=== PATIENT | female | born 1960 | race Caucasian/White ===

== ENCOUNTER 2020-01-02 09:33 | Outpatient (REF) | payer OTHER, SELFPAY ==
[2020-01-02 11:18] LABS: MANUAL DIFF FLAG NO
[2020-01-02 11:21] LABS: Basophils Percent Auto 0.4 % (0-2); Eosinophils Absolute Auto 0.1 X10*3/uL (0.0-0.4); Eosinophils Percent Auto 2.4 % (0-4); Hematocrit 41.8 % (37-47); Hemoglobin 14.1 g/dl (12.0-16.0); Imm Gran Abs Auto 0.01 X10*3/uL (0.00-0.03); Imm Gran Pct Auto 0.2 % (0.0-0.4); Lymphocytes Percent Auto 36.8 % (20-40); Mean Corpuscular HGB Conc 33.7 g/dl (31.0-35.0); Mean Corpuscular Hemoglobin 31.5 pg (27.0-33.0); Mean Corpuscular Volume 93.5 fL (80-98); Mean Platelet Volume 10.4 fL (9.4-12.3); Monocytes Absolute Auto 0.3 X10*3/uL (0.1-1.2); Monocytes Percent Auto 6.2 % (2-11); Platelet Count 205 X10*3/uL (160-400); Red Blood Count 4.47 X10*6/uL (4.20-5.50); Red Cell Distribution Width 13.1 % (11.0-16.0); White Blood Count 5.5 X10*3/uL (4.8-10.8)
[2020-01-02 11:59] LABS: Alanine Aminotransferase 28 U/L (0-31); Albumin Level 4.4 g/dL (3.5-5.0); Alkaline Phosphatase 60 U/L (39-117); Anion Gap 12 (12-20); Aspartate Amino Transferase 26 U/L (5-31); Bilirubin Total 0.6 mg/dL (0.0-1.0); Blood Urea Nitrogen 15 mg/dL (9-16); Calcium 8.8 mg/dL (8.4-10.2); Carbon Dioxide 28 mmol/L (22-29); Chloride 105 mmol/L (96-108); Cholesterol 240 mg/dL; Estimated Glomerular Filt Rate > 60; Glucose Fasting 97 mg/dL (60-99); HDL Cholesterol 75 mg/dL; LDL Cholesterol Calculated 144 mg/dl; Potassium 4.4 mmol/l (3.3-5.1); Sodium 141 mmol/L (135-145); Total Protein 6.9 g/dL (6.5-8.0); Triglycerides 106 mg/dL
== END 2020-01-02 09:34 | disposition home or self-care (01) ==
LOC: HO.MANLDS 09:33
PROVIDERS: PCP Physician Assistant; Visit Provider Physician Assistant
DX: Z00.00 Encounter for general adult medical examination without abnormal findings (principal); Z13.6 Encounter for screening for cardiovascular disorders
CPT/HCPCS: 36415; 80053; 80061; 85025

== ENCOUNTER 2021-01-03 09:20 | Outpatient (REF) | payer BC, SELFPAY ==
[2021-01-03 10:55] LABS: MANUAL DIFF FLAG NO
[2021-01-03 11:10] LABS: Basophils Percent Auto 0.5 % (0-2); Eosinophils Absolute Auto 0.2 X10*3/uL (0.0-0.4); Eosinophils Percent Auto 2.8 % (0-4); Hematocrit 41.1 % (37.0-47.0); Hemoglobin 13.8 g/dl (12.0-16.0); Imm Gran Abs Auto 0.02 X10*3/uL (0.00-0.03); Imm Gran Pct Auto 0.4 % (0.0-0.4); Lymphocytes Percent Auto 35.6 % (20-40); Mean Corpuscular HGB Conc 33.6 g/dl (31.0-35.0); Mean Corpuscular Hemoglobin 31.2 pg (27.0-33.0); Mean Corpuscular Volume 92.8 fL (80.0-98.0); Monocytes Absolute Auto 0.4 X10*3/uL (0.1-1.2); Monocytes Percent Auto 6.5 % (2-11); Neutrophils Absolute Auto 3.1 x10*3/uL (2.0-8.3); Neutrophils Percent Auto 54.2 % (45-73); Platelet Count 192 X10*3/uL (160-400); Red Blood Count 4.43 X10*6/uL (4.20-5.50); Red Cell Distribution Width 12.8 % (11.0-16.0); White Blood Count 5.7 X10*3/uL (4.8-10.8)
[2021-01-03 11:30] LABS: Alanine Aminotransferase 21 U/L (0-31); Albumin Level 4.4 g/dL (3.5-5.0); Alkaline Phosphatase 65 U/L (39-117); Anion Gap 11 (12-20); Aspartate Amino Transferase 23 U/L (5-31); Bilirubin Total 0.6 mg/dL (0.0-1.0); Blood Urea Nitrogen 14 mg/dL (9-16); Calcium 9.3 mg/dL (8.4-10.2); Carbon Dioxide 27 mmol/L (22-29); Chloride 107 mmol/L (96-108); Cholesterol 220 mg/dL; Estimated Glomerular Filt Rate > 60; Glucose Random 95 mg/dL (60-115); HDL Cholesterol 68 mg/dL; LDL Cholesterol Calculated 131 mg/dl; Potassium 4.1 mmol/L (3.3-5.1); Sodium 141 mmol/L (135-145); Total Protein 6.8 g/dL (6.5-8.0); Triglycerides 105 mg/dL
[2021-01-03 11:51] LABS: Free T4 (Free Thyroxine) 0.87 ng/dL (0.71-1.85); Thyroid Stimulating Hormone 2.32 uIU/mL (0.32-4.0)
== END 2021-01-03 09:21 | disposition home or self-care (01) ==
LOC: HO.MANLDS 09:20
PROVIDERS: PCP Physician Assistant; Visit Provider Physician Assistant
DX: Z00.00 Encounter for general adult medical examination without abnormal findings (principal)
CPT/HCPCS: 36415; 80053; 80061; 84439; 84443; 85025

== ENCOUNTER 2022-02-07 07:59 | Outpatient (REF) | payer BC, SELFPAY ==
[2022-02-07 11:05] LABS: MANUAL DIFF FLAG NO
[2022-02-07 11:24] LABS: Basophils Percent Auto 0.7 % (0-2); Eosinophils Absolute Auto 0.1 X10*3/uL (0.0-0.4); Hematocrit 38.5 % (37.0-47.0); Lymphocytes Absolute Auto 1.7 X10*3/uL (1.2-4.9); Lymphocytes Percent Auto 37.8 % (20-40); Mean Corpuscular HGB Conc 33.8 g/dl (31.0-35.0); Mean Corpuscular Hemoglobin 31.6 pg (27.0-33.0); Mean Corpuscular Volume 93.7 fL (80.0-98.0); Mean Platelet Volume 10.6 fL (9.4-12.3); Monocytes Absolute Auto 0.3 X10*3/uL (0.1-1.2); Monocytes Percent Auto 7.1 % (2-11); Neutrophils Absolute Auto 2.3 x10*3/uL (2.0-8.3); Neutrophils Percent Auto 51.4 % (45-73); Platelet Count 205 X10*3/uL (160-400); Red Blood Count 4.11 X10*6/uL (4.20-5.50); Red Cell Distribution Width 13.2 % (11.0-16.0); White Blood Count 4.4 X10*3/uL (4.8-10.8)
[2022-02-07 13:24] LABS: Alanine Aminotransferase 21 U/L (0-31); Albumin Level 4.2 g/dL (3.5-5.0); Alkaline Phosphatase 58 U/L (39-117); Anion Gap 12 (12-20); Aspartate Amino Transferase 21 U/L (5-31); Bilirubin Total 0.7 mg/dL (0.0-1.0); Blood Urea Nitrogen 15 mg/dL (9-16); Carbon Dioxide 26 mmol/L (22-29); Chloride 108 mmol/L (96-108); Cholesterol 225 mg/dL; Estimated Glomerular Filt Rate > 60; Free T4 (Free Thyroxine) 1.06 ng/dL (0.71-1.85); Glucose Random 87 mg/dL (60-115); HDL Cholesterol 73 mg/dL; LDL Cholesterol Calculated 133 mg/dl; Potassium 4.3 mmol/L (3.3-5.1); Sodium 142 mmol/L (135-145); Total Protein 6.2 g/dL (6.5-8.0); Triglycerides 96 mg/dL
== END 2022-02-07 08:00 | disposition home or self-care (01) ==
LOC: HO.MANLDS 07:59
PROVIDERS: Visit Provider Physician Assistant
DX: Z00.00 Encounter for general adult medical examination without abnormal findings (principal)
CPT/HCPCS: 36415; 80053; 80061; 84439; 84443; 85025

== ENCOUNTER 2023-02-09 09:44 | Outpatient (REF) | payer BC, SELFPAY ==
[2023-02-09 13:26] LABS: MANUAL DIFF FLAG NO
[2023-02-09 13:36] LABS: Basophils Percent Auto 0.3 % (0-2); Eosinophils Absolute Auto 0.1 X10*3/uL (0.0-0.4); Eosinophils Percent Auto 2.1 % (0-4); Hematocrit 40.8 % (37.0-47.0); Hemoglobin 13.6 g/dl (12.0-16.0); Imm Gran Abs Auto 0.01 X10*3/uL (0.00-0.03); Imm Gran Pct Auto 0.2 % (0.0-0.4); Lymphocytes Percent Auto 35.5 % (20-40); Mean Corpuscular HGB Conc 33.3 g/dl (31.0-35.0); Mean Corpuscular Hemoglobin 31.1 pg (27.0-33.0); Mean Corpuscular Volume 93.2 fL (80.0-98.0); Mean Platelet Volume 10.8 fL (9.4-12.3); Monocytes Absolute Auto 0.4 X10*3/uL (0.1-1.2); Monocytes Percent Auto 6.6 % (2-11); Neutrophils Absolute Auto 3.2 x10*3/uL (2.0-8.3); Neutrophils Percent Auto 55.3 % (45-73); Platelet Count 223 X10*3/uL (160-400); Red Blood Count 4.38 X10*6/uL (4.20-5.50); Red Cell Distribution Width 13.1 % (11.0-16.0); White Blood Count 5.7 X10*3/uL (4.8-10.8)
[2023-02-09 14:14] LABS: Alanine Aminotransferase 17 U/L (0-31); Albumin Level 4.3 g/dL (3.5-5.0); Alkaline Phosphatase 68 U/L (39-117); Anion Gap 14 (12-20); Aspartate Amino Transferase 24 U/L (5-31); Bilirubin Total 0.6 mg/dL (0.0-1.0); Blood Urea Nitrogen 15 mg/dL (9-16); Calcium 9.4 mg/dL (8.4-10.2); Carbon Dioxide 26 mmol/L (22-29); Chloride 105 mmol/L (96-108); Cholesterol 215 mg/dL (<200); Estimated Glomerular Filt Rate > 60; Glucose Random 90 mg/dL (60-115); HDL Cholesterol 74 mg/dL (>40); LDL Cholesterol Calculated 126 mg/dL (<100); Potassium 3.9 mmol/L (3.3-5.1); Sodium 141 mmol/L (135-145); Total Protein 7.1 g/dL (6.5-8.0); Triglycerides 79 mg/dL (<150)
[2023-02-09 14:29] LABS: Thyroid Stimulating Hormone 1.74 uIU/mL (0.32-4.0)
[2023-02-09 14:35] LABS: Free T4 (Free Thyroxine) 1.01 ng/dL (0.71-1.85)
== END 2023-02-09 09:45 | disposition home or self-care (01) ==
LOC: HO.MANLDS 09:44
PROVIDERS: Visit Provider Physician Assistant
DX: Z00.00 Encounter for general adult medical examination without abnormal findings (principal)
CPT/HCPCS: 36415; 80053; 80061; 84439; 84443; 85025

== ENCOUNTER 2023-07-03 07:46 | Outpatient (REF) | payer BC, SELFPAY ==
[2023-07-03 14:05] LABS: Anion Gap 11 (12-20); Blood Urea Nitrogen 16 mg/dL (9-16); Calcium 9.6 mg/dL (8.4-10.2); Carbon Dioxide 27 mmol/L (22-29); Chloride 107 mmol/L (96-108); Cholesterol 211 mg/dL (<200); Estimated Glomerular Filt Rate > 60; Glucose Random 88 mg/dL (60-115); HDL Cholesterol 67 mg/dL (>40); LDL Cholesterol Calculated 123 mg/dL (<100); Potassium 4.2 mmol/L (3.3-5.1); Sodium 141 mmol/L (135-145); Triglycerides 106 mg/dL (<150)
== END 2023-07-03 07:47 | disposition home or self-care (01) ==
LOC: HO.MANLDS 07:46
PROVIDERS: Visit Provider Internal Medicine
DX: I10 Essential (primary) hypertension (principal)
CPT/HCPCS: 36415; 80048; 80061

== ENCOUNTER 2025-02-25 09:50 | Outpatient (REF) | payer BC, SELFPAY ==
--- OUTSIDE RECORDS SUMMARY | 2025-02-25 10:44 | XMS_ITS | Encounter Summary ---
Author Organization [facility] Address [address] [facility] [address] [place] [address] Phone Care Team Providers Care Credit Card Clerk Name Role Phone Nereyda Tayo Brown DO Unavailable Daysi Stringer MUSIC DIRECTOR Unavailable [phone] Sun [place] MUSIC DIRECTOR Unavailable [phone] Cynthia Paulino MD Unavailable Dianne Harry MUSIC DIRECTOR Unavailable [phone] Tayo Dawn DO Primary Care Provider [phone] Tayo Dawn DO Unavailable Encounter Details Date Type Department Care Team (Latest Contact Info) Description 10/15/2018 Transcribe Orders Virtual Department [address] [place] [address] Kim Griffin PA-C [address] [place] [address] [email or web address] Abnormal findings on diagnostic imaging of other specified body structures (Primary Dx) Social History Tobacco Use Types Packs/Day Years Used Date Smoking Tobacco: Former Alcohol Use Standard Drinks/Week Comments Yes 0 (1 standard drink = 0.6 oz pur e alcohol) Comments No Sex and Gender Information Value Date Recorded Sex Assigned at Female 10/05/2018 5:50 AM EDT Legal Sex Female 9:50 PM EDT Gender Identity Female 10/05/2018 5:50 AM EDT Sexual Orientation Not on file documented as of this encounter Plan of Treatment Upcoming Encounters Date Type Department Care Team (Late st Contact Info) Description 11/24/2024 Procedure Pass [address] [address] 07/29/2025 7:30 AM EDT Appointment [facility] [address] [place] [address] Tayo Dawn, DO [address] [facility] [place] [address] [place] [address] documented as of this encounter Results * XR CHEST PA AND LATERAL 2 VIEWS (10/22/2018 3:00 PM EDT) Anatomical Region Laterality Modality Chest Radiographic Ainsley ging 10/22/2018 3:12 PM EDT Impressions 10/22/2018 3:14 PM EDT Persisting unchanged pleural-based density in the right midlung field as detailed above. Please see above for follow-up suggestions. S/S: <N/A> no indication applies (use free text below) STANDARD CHEST XR ABNORMAL Abnormal findings on diagnostic imaging of other specified body structures follow-up density right midlung field on the previous chest x-ray POS - [id number] Narrative 10/22/2018 3:14 PM EDT COMPARISON: Chest x-ray 10/05/2018 FINDINGS: PA and lateral imaging of the chest is obtained. The heart size is normal. The focal linear density evident along the minor fissure in the right midlung field persists and unchanged pattern. This is of undetermined etiology but could represent some pleural plaquing. As indicated previously CT scanning could be considered although the likelihood of this being a significant process is low. The lungs otherwise are unremarkable. The aortic contour is unchanged. There are moderate degenerative changes in the thoracic spine. No pneumothorax or pleural fluid is seen. Procedure Note Brock Landry MD - 10/22/2018 COMPARISON: Chest x-ray 10/05/2018 FINDINGS: PA and lateral imaging of the chest is obtained. The heart size is normal. The focal linear density evident along the minor fissure in the rightmidlung field persists and unchanged pattern. This is of undeterminedetiology but could represent some pleural plaquing. As indicatedpreviously CT scanning could be considered although the likelihood of thisbeing a significant process is low. The lungs otherwise areunremarkable. The aortic contour is unchanged. There are moderate degenerative changes in the thoracic spine. No pneumothorax or pleural fluid is seen. IMPRESSION: Persisting unchanged pleural-based density in the right midlung field asdetailed above. Please see above for follow-up suggestions. S/S: <N/A> no indication applies (use free text below) STANDARD CHEST XR ABNORMAL Abnormal findings on diagnostic imaging of other specified body structuresfollow-up density right midlung field on the previous chest x-ray POS - [id number] May Elias WALLER IMG XR CHEST Final Result documented in this encounter Visit Diagnoses Diagnosis Abnormal findings on diagnostic imaging of other specified body structures- Primary Abnormal findings on diagnostic imaging of other specified body structures Visit for screening mammogram documented in this encounter Care Teams Credit Card Clerk Relationship Specialty Start Date End Date Tayo Dawn DO [address] [place] [address] PCP - General 03/01/17 Tayo Dawn DO Historical LMR Provider 12/12/16 Daysi Stringer NP [address] [place] [address] [email or web address] Historical LMR Provider 12/12/16 2 Sun [place] NP [address] [place] [address] Historical LMR Provider 12/12/16 2 Cynthia Paulino MD [address] [place] [address] [email or web address] Historical LMR Provider 12/12/16 03/05/21 Dianne Harry NP [address] [place] [address] Historical LMR Provider 12/12/16 2 Tayo Dawn DO [address] [place] [address] [place] [address] [email or web address] Insurance Assigned Provider 06/02/23 documented as of this encounter Additional Source Comments The information contained in this document represents components of the legal health record. It is not the complete legal health record.[facility]
--- OUTSIDE RECORDS SUMMARY | 2025-02-25 10:44 | XMS_ITS | Encounter Summary ---
Author Organization [facility] Address [address] [address] Phone Care Team Providers Care Sheep Killer Name Role Phone Tayo Dawn DO Unavailable Daysi Stringer PRICING/SIGNAGE TEAM MEMBER Unavailable Sun [place] PRICING/SIGNAGE TEAM MEMBER Unavailable Cynthia Paulino MD Unavailable Dianne Harry PRICING/SIGNAGE TEAM MEMBER Unavailable [phone] Tayo Dawn DO Primary Care Provider [phone] Tayo Dawn DO Unavailable Encounter Details Date Type Department Care Team (Late st Contact Info) Description 08/30/2018 Ancillary Orders Virtual Department [address] [place] [address] Tayo Dawn DO [address] [facility] [place] [address] [email or web address] Breast screening Social History Tobacco Use Types Packs/Day Years Used Date Smoking Tobacco: Never Assessed Comments No Sex and Gender Information Value Date Recorded Sex Assigned at Female 10/05/2018 5:50 AM EDT Legal Sex Female 9:50 PM EDT Gender Identity Female 10/05/2018 5:50 AM EDT Sexual Orientation Not on file documented as of this encounter Plan of Treatment Upcoming Encounters Date Type Department Care Team (Late st Contact Info) Description 11/24/2024 Procedure Pass [address] [address] 07/29/2025 7:30 AM EDT Appointment [address] [address] MeirTayo moreno Kevin, [address] [facility] [place] [address] [email or web address] documented as of this encounter Results * BI MAMMOGRAM SCREENING WITH TOMOSYNTHESIS WITH CAD (BILATERAL) (11/13/2018 7:20 AM EDT) Anatomical Region Laterality Modality Breast Left, Breast Right, Breast Bilateral Bila teral Mammography 11/13/2018 7:52 AM EDT Impressions 11/13/2018 7:57 AM EDT No mammographic evidence of malignancy. Recommend routine annual surveillance. BI-RADS CATEGORY: 2 - Benign finding. DENSITY: There are scattered fibroglandular densities. POS - [id number] Narrative 11/13/2018 7:57 AM EDT 58-year-old female with no current breast symptoms. Comparison made to previous on 11/02/2017 and as far back as 06/07/2012. Interpretation made in conjunction with computer-aided detection and tomosynthesis. There are scattered areas of fibroglandular density. Stable scattered benign bilateral macrocalcifications. There are no suspicious masses, areas of architectural distortion, or suspicious clusters of microcalcifications. Procedure Note Ileana Roy MD - 11/13/2018 58-year-old female with no current breast symptoms. Comparison made toprevious on 11/02/2017 and as far back as 06/07/2012. Interpretation madein conjunction with computer-aided detection and tomosynthesis. There are scattered areas of fibroglandular density. Stable scatteredbenign bilateral macrocalcifications. There are no suspicious masses, areas of architectural distortion, orsuspicious clusters of microcalcifications. IMPRESSION: No mammographic evidence of malignancy. Recommend routine annualsurveillance. BI-RADS CATEGORY: 2 - Benign finding. DENSITY: There are scattered fibroglandular densities. POS - [id number] Tayo Dawn DO IMG MG EXAMS Final Result documented in this encounter Visit Diagnoses Diagnosis Breast screening Breast screening, unspecified Breast screening Breast screening, unspecified Visit for screening mammogram documented in this encounter Care Teams Sheep Killer Relationship Specialty Start Date End Date Nereyda Tayo DO Kevin [address] [place] [address] PCP - General 03/01/17 Tayo Dawn DO Historical LMR Provider 12/12/16 Daysi Stringer PRICING/SIGNAGE TEAM MEMBER [address] [place] [address] [email or web address] Historical LMR Provider 12/12/16 2 Sun [place] NP [address] [place] [address] Historical LMR Provider 12/12/16 2 Cynthia Paulino MD [address] [address] Historical LMR Provider 12/12/16 03/05/21 Dianne Harry NP [address] [place] [address] Historical LMR Provider 12/12/16 2 Tayo Dawn DO [address] [place] [address] [email or web address] Insurance Assigned Provider 06/02/23 documented as of this encounter Additional Source Comments The information contained in this document represents components of the legal health record. It is not the complete legal health record.[facility]
--- OUTSIDE RECORDS SUMMARY | 2025-02-25 10:44 | XMS_ITS | Encounter Summary ---
Author Organization [facility] Address [address] [facility] [address] [place] [address] Phone Care Team Providers Care Photographic Spotter Name Role Phone Tayo Dawn DO Unavailable Daysi Stringer GENERAL SURGEON Unavailable [phone] Sun [place] GENERAL SURGEON Unavailable [phone] Cynthia Paulino MD Unavailable Dianne Harry GENERAL SURGEON Unavailable [phone] Tayo Dawn DO Primary Care Provider [phone] Tayo Dawn DO Unavailable Encounter Details Date Type Department Care Team (Late st Contact Info) Description 09/17/2020 Procedure Pass [address] [address] Social History Tobacco Use Types Packs/Day Years Used Date Smoking Tobacco: Former Smokeless Tobacco: Never Alcohol Use Standard Drinks/Week Comments Yes 3 (1 standard drink = 0.6 oz pur e alcohol) MONTHLY Comments No Sex and Gender Information Value Date Recorded Sex Assigned at Female 10/05/2018 5:50 AM EDT Legal Sex Female 9:50 PM EDT Gender Identity Female 10/05/2018 5:50 AM EDT Sexual Orientation Not on file 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 Not on file N ot on file documented as of this encounter Plan of Treatment Upcoming Encounters Date Type Department Care Team (Late st Contact Info) Description 11/24/2024 Procedure Pass [address] [address] 07/29/2025 7:30 AM EDT Appointment [address] [address] Tayo Dawn DO [address] [facility] [place] [address] documented as of this encounter Visit Diagnoses Not on filedocumented in this encounter Care Teams Photographic Spotter Relationship Specialty Start Date End Date Tayo Dawn DO [address] [place] [address] PCP - General 03/01/17 Tayo Dawn DO Historical LMR Provider 12/12/16 Daysi Stringer GENERAL SURGEON [address] [place] [address] [email or web address] Historical LMR Provider 12/12/16 2 Sun Boston NP [address] [place] [address] Historical LMR Provider 12/12/16 2 Cynthia Paulino MD [address] [place] [address] Historical LMR Provider 12/12/16 03/05/21 Dianne Harry NP [address] [place] [address] Historical LMR Provider 12/12/16 2 Tayo Dawn DO [address] [place] [address] [email or web address] Insurance Assigned Provider 06/02/23 documented as of this encounter Additional Source Comments The information contained in this document represents components of the legal health record. It is not the complete legal health record.[facility]
--- OUTSIDE RECORDS SUMMARY | 2025-02-25 10:44 | XMS_ITS | Data Portability ---
Author Organization [facility], Telehealth Patient Home Address [address] [place] [address] Assessment Encounter Date Assessment Date Assessment LastModified by Organization Details LastModified Time 06/15/2023 06/15/2023 [id number] [place] [id number] (MEDICAL SCIENCE LIAISON) [facility] MUST MEET 2 OUT OF 3 ELEMENTS: PROBLEMS, DATA OR RISK ELEMENT 1: PROBLEMS ADDRESSED 1 OR MORE CHRONIC ILLNESS WITH EXACERBATION OR 2 OR MORE STABLE CHRONIC ILLNESSES OR 1 UNDIAGNOSED NEW PROBLEM OR 1 ACUTE ILLNESS W/SYMPTOMS OR 1 ACUTE COMPLICATED INJURY ELEMENT 2: DATA MUST MEET 1 OF 3 CATEGORIES CATEGORY 1: REVIEW OF PRIOR EXTERNAL NOTES, REVIEW OF RESULTS, ORDERING OF EACH TEST, ASSESSMENT REQUIRING INDEPENDENT HISTORIAN OR CATEGORY 2: INDEPENDENT INTERPRETATION OF TESTS BY ANOTHER PHYSICIAN OR SPECIALIST OR CATEGORY 3: DISCUSSION OF MGT OR TEST INTERPRETATION W/EXTERNAL PHYSICIAN OR SPECIALIST ELEMENT 3: RISK RISK OF COMPLICATIONS AND/OR MORBIDITY OR MORTALITY OF PATIENT MANAGEMENT PROVIDER MUST THOROUGHLY DOCUMENT EACH ELEMENT THAT IS COVERED Not available 06/15/2023 16:24:15 09/11/2023 09/11/2023 [id number] [place] [id number] (MEDICAL SCIENCE LIAISON) [facility] MUST MEET 2 OUT OF 3 ELEMENTS: PROBLEMS, DATA OR RISK ELEMENT 1: PROBLEMS ADDRESSED 1 OR MORE CHRONIC ILLNESS WITH EXACERBATION OR 2 OR MORE STABLE CHRONIC ILLNESSES OR 1 UNDIAGNOSED NEW PROBLEM OR 1 ACUTE ILLNESS W/SYMPTOMS OR 1 ACUTE COMPLICATED INJURY ELEMENT 2: DATA MUST MEET 1 OF 3 CATEGORIES CATEGORY 1: REVIEW OF PRIOR EXTERNAL NOTES, REVIEW OF RESULTS, ORDERING OF EACH TEST, ASSESSMENT REQUIRING INDEPENDENT HISTORIAN OR CATEGORY 2: INDEPENDENT INTERPRETATION OF TESTS BY ANOTHER PHYSICIAN OR SPECIALIST OR CATEGORY 3: DISCUSSION OF MGT OR TEST INTERPRETATION W/EXTERNAL PHYSICIAN OR SPECIALIST ELEMENT 3: RISK RISK OF COMPLICATIONS AND/OR MORBIDITY OR MORTALITY OF PATIENT MANAGEMENT PROVIDER MUST THOROUGHLY DOCUMENT EACH ELEMENT THAT IS COVERED Not available 09/11/2023 15:16:41 Plan of Treatment Reminders Order Date Submit Date Provider Last Modified By Organization Details Last Modified Time Details Appointments ANNUAL EXAM 2024 09:00A M ANTONIO AMADOR Not available Not available Not available MEDICARE ANNUAL WELLNESS 2026 09:00A M ANTONIO AMADOR Not available Not available Not available Lab CMP, serum or plasma 2024 025 [facility], [address] [place] [address], [id number], 02/25/2025 09:45:23 CBC w/ auto diff 2024 025 [facility], [address] [place] [address], [id number], 02/25/2025 09:45:23 lipid panel, blood 2024 025 [facility], [address] [place] [address], [id number], 02/25/2025 09:45:23 hemoglobi n A1c, QN, blood 2024 025 [facility], [address] [place] [address], [id number], 02/25/2025 09:45:23 TSH + free T4, serum 2023 024 [facility], [place], [address], 02/18/2024 09:18:19 BMP, blood 2023 024 [facility], [address] [place] [address], [address], 06/22/2023 08:14:08 lipid panel, blood 2023 024 [facility], [address] [place] [address], [id number], 06/22/2023 08:14:08 CMP, serum or plasma 2022 023 [facility], [address] [place] [address], [place], [address], 02/12/2023 11:45:13 CBC w/ auto diff 2022 023 [facility], [address] [place] [address], [place], [address], 02/12/2023 11:45:13 lipid panel, blood 2022 023 [facility], [address] [place] [address], [address], 02/12/2023 11:45:13 TSH + free T4, serum 2022 023 [facility], [address] [place] [address], [place], [address], 02/12/2023 11:45:13 Referral physical therapist referral 2024 025 [facility], [address] [place], [address], 02/25/2025 10:04:10 gastroent erologist referral 2023 024 judah Amaya MD, [address] [place] [address], [address], 03/05/2024 15:20:05 Procedures None recorded. Surgeries None recorded. Imaging None recorded. Medication Orders triamtere ne 37.5 mg-hydroc hlorothia zide 25 mg tablet 2023 024 [id number], [address], [place], [id number], 09/11/2023 15:13:33 Patient TargetsNo targets recorded. Patient Instructions Encounter Date Encounter Id Patient Instructions Last Modified By Organization Details Last Modified Time 06/15/2023 [id number] leg and ankle edema: care instructions Not available 06/15/2023 16:24:45 Reason for Referral Assistant Designer Referral for Screening colonoscopy overdue for colonoscopy Referring Physician: Malou Reynolds, Internal Medicine, Encounter Date: 02/18/2024 Physical Therapist Referral for Pain of knee region L acute knee pain, probably mensicus tearing, needs rehab knee and gait training Referring Physician: Malou Reynolds, Internal Medicine, Encounter Date: 02/25/2025 Results Created Date Observation Date Name Description Value Unit Range Abnormal Flag Note LastModifiedBy Organization Detail LastModifiedTime 04/20/19 24 04/18/2023 MAMMO , scree marylou, digit al, bilat eral No observ ation record ed. [email or web address] [facility] [address] [place], [address], 06/15/2023 16:14:40 07/25/19 25 07/24/2024 MAMMO , scree marylou, digit al, bilat eral No observ ation record ed. [email or web address] [facility] - Callback Orders Only [address] [place], [address], 07/25/2024 08:40:24 Result Notes None recorded. Problems Name Problem SNOMED Code Status Onset Date Resolution Date Notes Provider Name and Address Organization Details Recorded Time Migraine 13272146 Active 2018 Not Available [facility] 1 10:52:04 Bhargavi thyroidit is 38901433 Active 2018 zhane TSH/t4 11/19/18 Not Available [facility] 1 10:52:04 Bunion 606416900 Active 2021 ANTONIO AMADOR [address] [place] [address], [phone], [facility] [place] 2 16:23:13 Bunion 879017680 Active 2021 ANTONIO AMADOR [address] [place] [address], [phone], [facility] [place] 2 16:24:33 Edema of lower extremity 427946662 Active 2023 Tayo Dawn DO [address] [place] [address], [phone], [facility] 4 16:22:04 Hypertens louis disorder 02007413 Active 2023 Tayo Dawn DO [address] [place], [address], [facility] [place] 4 15:15:45 Pain of knee region 3135479212 Active 2024 ANTONIO AMADOR [address] [place], [address], [facility] 5 09:26:08 Problem Notes None recorded. Procedures Surgical History Date Name Laterality Status Provider Name and Address Organization Details Recorded Time 5 Colonoscopy completed Gaby Jalloh [facility] 04/01/2024 13:27:07 8 Most Recent Mammogram completed [facility] 10/14/2018 14:16:56 1 Date of Last Pap Smear completed [facility] 12/30/2018 08:07:53 Imaging Results None recorded. Procedure Notes None recorded. Medical Equipment None Reported. Allergies Allergen ID Allergen Name Allergen Category Reaction Reaction Severity Criticality Documentation Date Start Date Code Code System Note Provider Name and Address Organization Details Recorded Time 8172 triamtere ne medicatio n itching mild low 09/11/2023 78062 RxNorm Tayo Dawn, DO [address] [place], [address], [facility] [place] Internal [facility] 4 15:14:13 Medications Name Sig Start Date Stop Date Status Note LastModified by Organization Details LastModified Time cyclobenzap rine 10 mg tablet Take 1 tablet every day by oral route as needed for 30 days. 12/30 completed Not Available Not Available Not Available triamterene 37.5 mg-hydrochl orothiazide 25 mg tablet Take 1 tablet every day by oral route for 30 days. 09/10 completed Not Available Not Available Not Available lisinopril 5 mg tablet TAKE 1 TABLET BY MOUTH EVERY DAY active Not Available Not Available No t Available Laxative (bisacodyl) 5 mg tablet TAKE 4 TABLETS BY MOUTH AT ONCE FOR 1 DAY active Not Available Not Available No t Available Boostrix Tdap 2.5 Lf unit-8 mcg-5 Lf/0.5 mL intramuscul ar syringe 01/03 completed Not Available Not Available Not Available Vitamin C active Not Available Not Aggie ilable Not Available calcium active Not Available Not Avail able Not Available Fish Oil active Not Available Not Avai lable Not Available Vitamin D3 active Not Available Not Av ailable Not Available multivitami n active Not Available Not Available Not Available GaviLyte-G 236 gram-22.74 gram-6.74 gram-5.86 gram oral solution MIX AND DRINK DIRECTED 02/25 completed Not Available Not Available Not Available Allergy OTC qd active Not Available Not Avail able Not Available Flucelvax Quad (PF) 60 mcg (15 mcg x 4)/0.5 mL IM syringe VACCINATI ON ADMINISTE RED BY PHARMACIS T 01/03 completed Not Available Not Available Not Available Vitals Date Recorded Body weight Body mass index (BMI) Body height Heart rate Oxygen saturation Systolic And Diastolic Provider Name and Address Organization Details Last Updated DateTime 4 27070.2 4 g 32.1 kg/m2 158.75 cm 93 /min 98 % 130/96 mm[Hg] Gaby Jalloh [facility] 4 16:01:06 Date Recorded Body height Body mass index (BMI) Body weight Heart rate Oxygen saturation Systolic And Diastolic Provider Name and Address Organization Details Last Updated DateTime 4 158.75 cm 32 kg/m2 21307.4 4 g 97 /min 95 % 100/74 mm[Hg] Annetta Luna [facility] 4 14:52:45 Date Recorded Body weight Heart rate Oxygen saturation Systolic And Diastolic Provider Name and Address Organization Details Last Updated DateTime 02/09/2023 48552.26 g 74 /min 99 % 130/82 mm[Hg] Lori Santillan [facility] 02/09/2023 08:58:45 Date Recorded Body height Body mass index (BMI) Body weight Heart rate Oxygen saturation Systolic And Diastolic Provider Name and Address Organization Details Last Updated DateTime 4 158.75 cm 31.6 kg/m2 63351.4 6 g 91 /min 97 % 122/84 mm[Hg] Gaby Jalloh [facility] 4 09:01:49 Date Recorded Body height Body mass index (BMI) Body weight Heart rate Oxygen saturation Systolic And Diastolic Provider Name and Address Organization Details Last Updated DateTime 5 157.48 cm 31.8 kg/m2 84218.0 7 g 91 /min 98 % 110/68 mm[Hg] Annetta Jeremy [facility] 5 09:02:35 Social History Question Answer Notes LastModified by Organizat ion Details LastModified Time Tobacco Smoking Status Former Smoker Quit 1994 Yudith Kumar [facility] 01/03/2021 08:58:53 What Was The Date Of Your Most Recent Tobacco Screening? 02/18/2024 [email or web address] Information not available 02/18/2024 Sex: Unknown Functional Status Question Answer Note LastModified by Organization D etails LastModified Time Do you or have you ever used any other forms of tobacco or nicotine? No [email or web address] Information not available 02/09/2023 Mental Status None recorded. Family History Nothing Reported. Medical History No medical history recorded. Gynecological History Statement/Question Response Date of Last Pap Smear 10/20/2010 Most Recent Mammogram 11/02/2017 Obstetrics History GPAL:G 0 P 0 0 0 0 Immunizations Vaccine Type Date Status Note Provider Nam e and Address Organization Details Recorded Time COVID-19, mRNA, LNP-S, PF, 30 mcg/0.3 mL dose 1 completed Lori Gencarelle [facility] 02/09/2023 08:53:14 COVID-19, mRNA, LNP-S, PF, 30 mcg/0.3 mL dose 1 completed Lori Gencarelle [facility] 02/09/2023 08:53:14 influenza, unspecified formulation 2 completed Lori Gencarelle null [facility] 02/09/2023 08:53:14 TST-PPD intradermal 0 completed Lori [facility], [facility] 02/09/2023 08:53:14 Tdap 9 completed Pamela Barrera null, [facility] 01/02/2020 08:55:55 Tdap 9 completed Pamela Barrera null, [facility] 01/02/2020 08:55:55 Influenza, split virus, quadrivalent, preservative 0 completed Lori Gencarelle null, [facility] 02/09/2023 08:53:14 zoster, unspecified formulation 0 completed Lori Gencarelle null, [facility] 02/09/2023 08:53:14 zoster, unspecified formulation 1 completed Lori Gencarelle [facility] 02/09/2023 08:53:14 Past Encounters Encounter ID Performer Location Encounter Start Date Encounter Closed Date Diagnosis/Indication Diagnosis SNOMED-CT Code Diagnosis ICD10 Code Diagnosis IMO Codes Diagnosis Note [id number] Tayo Dawn [facility] [address] [place] [address] 10/15/2018 10:21:14 10/15/2018 10:54:44 Standard chest X-ray abnormal 455310411 R93.89 Thoracic back pain 28508 8004 M54.6 agree likely spasm continue BAIN [id number] Tayo Dawn [facility] [address], [place] [address] 12/30/2018 08:48:03 12/30/2018 09:26:01 Adult health examination 389408199 Z00.00 refusing cscope, will consider, not sure about if she would treat Active or passive immunization 514954582 Z23 Vitamin D deficiency 347 78751 E55.9 Body mass index 30+ - obesity 240780984 Z68.32 [id number] Tayo Dawn [facility] [address], [place] [address] 01/02/2020 08:53:23 01/02/2020 10:33:53 Active or passive immunization 450480300 Z23 will send script to Adult [facility] examination 230498498 Z00.00 will call insurance company to see bain of cologuard Screening for cardiovascular system disease 088336486 Z13.6 [id number] Tayo Dawn [facility] [address] [facility] [address] 01/03/2021 08:52:08 01/03/2021 09:39:06 Active or passive immunization 887305423 Z23 up to date Adult [facility] examination 832164396 Z00.00 BP is excellent [id number] ANTONIO AMADOR [facility] [address] [facility] [address] 01/30/2022 15:51:20 01/30/2022 16:44:57 Active or passive immunization 029064679 Z23 patient advised she's due for flu shot Adult [facility] examination 356938815 Z00.00 BP is excellent Bunion 427005919 M21.61 1 will set up with [facility] for a surgical consult [id number] Tayo Dawn [facility] [address] [facility] [address] [facility] [place] [address] 02/09/2023 08:53:03 02/09/2023 09:49:35 Adult health examination 045005224 Z00.00 BP is excellent Migraine 64603699 G43.10 9 stable Hbargavi thyroiditis 21 663074 E06.3 normal recheck [id number] Tayo Dawn [facility] [address] [facility] [address] 06/15/2023 15:41:01 06/15/2023 16:44:56 Hypertensive disorder 44301627 I10 Edema of l ower extremity 659409455 R60.0 [id number] Tayo Dawn [facility] [address] [facility] [address] [facility] [address] 09/11/2023 14:35:42 09/11/2023 16:26:45 Depression screening 033346153 Z13.31 stable and negative Edema of l ower extremity 886901799 R60.0 stable now and no major issues Hypertensive disorder 38 830786 I10 here for rechk and is doing ok with 5 mg lisinopril [id number] Tayo Dawn [facility] [address] [facility],[place] [address] 02/18/2024 08:51:42 02/18/2024 09:41:29 Active or passive immunization 420991510 Z23 patient advised she's due for flu shot Adult heal th examination 278965222 Z00.00 BP is excellent Hypertensive disorder 38 386221 I10 BP is excellent Bhargavi thyroiditis 21 448817 E06.3 normal recheck Screening colonoscopy 44 9908111 Z12.11 will set up with the GI [id number] Tayo Dawn [facility] [address] [facility] [address] 02/25/2025 08:55:26 02/25/2025 09:45:38 Pain of knee region 8949685279 M25.562 41451731 recommende d PT General ex amination of patient 752649890 Z00.00 747140 BP is excellent Health Concerns Section Related Observation LastModified by Organization Detai ls LastModified Time None Recorded Concern Status LastModified by Organization Details LastModified Time None Recorded Advance Directives Directive None Recorded Payers Insurance Date Sequence Insurance Name Policy Number Policy Booth Covered Member ID Booth Member ID Guarantor Name 02/15/2024 1 [place] [id number] Irving [facility]ule[facility] [id number] [facility] 02/25/2025 1 [place] [facility] [place] [id number] [facility] [id number] [facility] 02/25/2025 1 [place] [facility] [place] [id number] Senait Cueto [facility] [id number] [facility] 02/25/2025 1 [facility] [employer] [facility] FUND - LOCAL 371 (PPO) Senait Lococo [id number] [facility] 02/25/2025 2 [place] [facility] [id number] Senait Toussaint 02/25/2025 [employer] - MED[employer]AL [employer]AN Senait Toussaint [id number] Senait Toussaint 02/25/2025 [employer] - MEDICAL [employer]AL [employer]AN Senait Toussaint [id number] Senait Toussaint Notes Date Note Type Note Provider Name and Address Organization Details Recorded Time 3 text/html Annual WellnessReported by PatientSocial/Behaviora l HistoryFor diet and nutrition, patient reportshealthy diet,discussed vitamin and supplement use,discussed portion control,discussed maintaining calcium balance, anddiscussed diet improvement. For fracture risk, patient reportsno history of fractures,no recent explained fracture,no sudden unexplained fractures, andno previous musculoskeletal injuries. For physical activity, patient reportsexercises on a regular basis,recent increase in physical activity, andgood physical condition. For additional lifestyle factors, patient reportsno tobacco useanddrinks alcohol (mild-moderate).Mental Status:For depression risk, patient reportsnever feels sad, empty, or tearful,no loss of interest in activities,no significant changes in weight,no sleep disturbances or insomnia,no agitation,no loss of energy,no feelings of worthlessness or guilt,no thoughts of suicide,no history of depression, andno history of mood disorders.Functional AbilityFor hearing, patient reportsno loss of hearing. For vision, patient reportsno vision problems. MTF she goes to water aerobics the patient is doing well ANTONIO AMADOR [address] [place] [address], [address], [facility] [place] 02/09/2023 09:21:04 4 text/html Hypertension F/UReported by PatientHPIFor medications, patient reportstaking medications as directedandno side effects from medication. For lifestyle, patient reportsregular exercise,limiting/avoid ing salt, andcompliant with low salt diet. For associated symptoms, patient reportsno dizziness,no lightheadedness,no chest pain,no shortness of breath,no palpitations,no edema,no calf pain with exertion, andno headache.relates she is noted to have an elevated bp at [id number]/96ROS as noted in the HPI relates that she is doing good Tayo Dawn, DO [address] [place], [address], [facility] [place] 06/15/2023 16:25:11 4 text/html ROS as noted in the HPI here for rechk and is doing ok overall despite some personal stressorsrelates home readings of bp are ok and is doing well Tayo Dawn, DO [address] [place], [address], [facility] [place] 09/11/2023 15:17:48 4 text/html Annual WellnessReported by PatientSocial/Behaviora l HistoryFor diet and nutrition, patient reportshealthy diet,discussed vitamin and supplement use,discussed portion control,discussed maintaining calcium balance, anddiscussed diet improvement. For fracture risk, patient reportsno history of fractures,no recent explained fracture,no sudden unexplained fractures, andno previous musculoskeletal injuries. For physical activity, patient reportsexercises on a regular basis,recent increase in physical activity, andgood physical condition. For additional lifestyle factors, patient reportsno tobacco useanddrinks alcohol (mild-moderate).Mental Status:For depression risk, patient reportsnever feels sad, empty, or tearful,no loss of interest in activities,no significant changes in weight,no sleep disturbances or insomnia,no agitation,no loss of energy,no feelings of worthlessness or guilt,no thoughts of suicide,no history of depression, andno history of mood disorders.Functional AbilityFor hearing, patient reportsno loss of hearing. For vision, patient reportsno vision problems.ROS as noted in the HPI no new allergies, stopped taking her allergy pill the lisinopril was started a few months ago but MBthe patient could be having a side effect to it, itching and coughrecommended holding it for a few days and see if the symptoms resolved was having some swelling problems before, will avoid using something like amlodipine ANTONIO AMADOR [address] [place], [address], [facility] [place] 02/18/2024 09:39:46 5 text/html Annual WellnessReported by PatientSocial/Behaviora l HistoryFor diet and nutrition, patient reportshealthy diet,discussed vitamin and supplement use,discussed portion control,discussed maintaining calcium balance, anddiscussed diet improvement. For fracture risk, patient reportsno history of fractures,no recent explained fracture,no sudden unexplained fractures, andno previous musculoskeletal injuries. For physical activity, patient reportsexercises on a regular basis,recent increase in physical activity,good physical condition,discussed weightbearing activities, anddiscussed exercise habits. For additional lifestyle factors, patient reportsno tobacco useanddrinks alcohol (mild-moderate).Mental Status:For depression risk, patient reportsnever feels sad, empty, or tearful,no loss of interest in activities,no significant changes in weight,no sleep disturbances or insomnia,no agitation,no loss of energy,no feelings of worthlessness or guilt,no thoughts of suicide,no history of depression, andno history of mood disorders.Functional AbilityFor hearing, patient reportsno loss of hearing. For vision, patient reportsno vision problems.ROS as noted in the HPI the patient is having increased L knee pain that radiates up her thighthe patient is walking with different gait, putting more pressure on the medial side of the kneethe patient probably has meniscal tear, medial side with arthritis changes given the presentationtrouble with stairs recommended PT to which patient agreed ANTONIO AMADOR [address] [facility], [place], [address], [facility] 02/25/2025 09:43:43 OBGyn Episode No OBEpisode recorded.
--- OUTSIDE RECORDS SUMMARY | 2025-02-25 10:44 | XMS_ITS | Encounter Summary ---
Author Organization [facility] Address [address] [address] Phone Care Team Providers Care Crew Boat Operator Name Role Phone Tyao Dawn DO Unavailable Daysi Stringer REVENUE COLLECTOR Unavailable Sun [place] REVENUE COLLECTOR Unavailable Cynthia Paulino MD Unavailable Dianne Harry REVENUE COLLECTOR Unavailable [phone] Tayo Dawn DO Primary Care Provider [phone] Tayo Dawn DO Unavailable Encounter Details Date Type Department Care Team (Late st Contact Info) Description 09/17/2020 Ancillary Orders Virtual Department 30 [place] [address] Tayo Dawn DO 179 [place] [address] [email or web address] Breast screening Social History Tobacco Use Types [...] st Contact Info) Description 11/24/2024 Procedure Pass [address] [address] 07/29/2025 7:30 AM EDT Appointment [address] [address] Tayo Dawn, DO [address] [place] [address] documented as of this encounter Results * BI MAMMOGRAM SCREENING WITH TOMOSYNTHESIS WITH CAD (BILATERAL) (11/30/2020 7:37 AM EDT) Anatomical Region Laterality Modality Breast Left, Breast Right, Breast Bilateral Bila teral Mammography 11/30/2020 7:55 AM EDT Impressions 11/30/2020 8:08 AM EDT No mammographic evidence of malignancy. Recommend routine annual surveillance. BI-RADS CATEGORY: 2 - Benign finding. DENSITY: There are scattered fibroglandular densities. Narrative 11/30/2020 8:08 AM EDT 60-year-old female with no current breast symptoms. Comparison made to previous on 11/28/2019 and as far back as 07/16/2014. Interpretation made in conjunction with computer-aided detection and tomosynthesis. There are scattered areas of fibroglandular density. Chronic benign bilateral macrocalcifications. There are no suspicious masses, areas of architectural distortion, or suspicious clusters of microcalcifications. Procedure Note Zackary Edouard MD - 11/30/2020 60-year-old female with no current breast symptoms. Comparison made toprevious on 11/28/2019 and as far back as 07/16/2014. Interpretation madein conjunction with computer-aided detection and tomosynthesis. There are scattered areas of fibroglandular density. Chronic benignbilateral macrocalcifications. There are no suspicious masses, areas of architectural distortion, orsuspicious clusters of microcalcifications. IMPRESSION: No mammographic evidence of malignancy. Recommend routine annualsurveillance. BI-RADS CATEGORY: 2 - Benign finding. DENSITY: There are scattered fibroglandular densities. Tayo Dawn DO IMG MG EXAMS Final Result documented in this encounter Visit Diagnoses Diagnosis Breast screening Breast screening, unspecified Breast screening Breast screening, unspecified Visit for screening mammogram documented in this encounter Care Teams Crew Boat Operator Relationship Specialty Start Date End Date Tayo Dawn DO 179 [place] [address] PCP - General 03/01/17 Tayo Dawn DO Historical LMR Provider 12/12/16 Daysi Stringer NP 21 [place] [address] [email or web address] Historical LMR Provider 12/12/16 2 Sun [place] NP 100 [place] [address] Historical LMR Provider 12/12/16 2 Cynthia Paulino MD [address] [address] Historical LMR Provider 12/12/16 03/05/21 Dianne Harry NP [address] [place] [address] Historical LMR Provider 12/12/16 2 Tayo Dwan DO [address] [place] [address] [email or web address] Insurance Assigned Provider 06/02/23 documented as of this encounter Additional Source Comments The information contained in this document represents components of the legal health record. It is not the complete legal health record.[facility]
--- OUTSIDE RECORDS SUMMARY | 2025-02-25 10:44 | XMS_ITS | Encounter Summary ---
Author Organization [facility] Address [address] [address] Phone Care Team Providers Care Oil Developer Name Role Phone Tayo Dawn DO Unavailable MeirTayo moreno DO Primary Care Provider [phone] Nereyda, Tayo Brown DO Unavailable Encounter Details Date Type Department Care Team ([facility] st Contact Info) Description 01/31/2024 Transcribe Orders Virtual Department [address] [place] [address] Tayo Dawn DO 179 [facility] [place], [place] [id number] [email or web address] Breast screening (Primary Dx) Social History Tobacco Use Types Packs/Day Years Used Date Smoking Tobacco: Former Smokeless Tobacco: Never Alcohol Use Standard Drinks/Week Comments Yes 1 (1 standard drink = 0.6 oz pur e alcohol) MONTHLY Education Answer Date Recorded Are you interested in more education? Not on dale e 06/23/2022 Are you concerned about learning? Not on file 06/23/2022 No 06/23/2022 No 06/23/2022 Digital Access Answer Date Recorded No 07/22/2022 No 07/22/2022 Reliable internet access at home? Not on file 07/22/2022 Device with a working camera? Not on file Comments No Sex and Gender Information Value [...] st Contact Info) Description 11/24/2024 Procedure Pass [address] [address] 07/29/2025 7:30 AM EDT Appointment [address] [address] Tayo Dawn, 179 [facility] [place] [address] documented as of this encounter Results * BI MAMMOGRAM SCREENING WITH TOMOSYNTHESIS WITH CAD (BILATERAL) (07/24/2024 7:53 AM EDT) Anatomical Region Laterality Modality Breast Left, Breast Right, Breast Bilateral Bila teral Mammography 07/24/2024 1:53 PM EDT Impressions 07/24/2024 1:58 PM EDT No mammographic evidence of malignancy in either breast. Annual screening mammography is recommended. BI-RADS 1 NEGATIVE The patient will be notified of the results and recommendations. Narrative 07/24/2024 1:58 PM EDT BI MAMMOGRAM SCREENING WITH TOMOSYNTHESIS WITH CAD (BILATERAL) Additional patient information: Screening. COMPARISON: Comparison is made with relevant prior imaging. Breast composition: There are scattered areas of fibroglandular density. FINDINGS: No abnormal masses, suspicious calcifications, or other significant findings are identified mammographically in either breast. There has been no significant interval change. Procedure Note Leslie Eugene MD - 07/24/2024 BI MAMMOGRAM SCREENING WITH TOMOSYNTHESIS WITH CAD (BILATERAL) Additional patient information: Screening. COMPARISON: Comparison is made with relevant prior imaging. Breast composition: There are scattered areas of fibroglandular density. FINDINGS: No abnormal masses, suspicious calcifications, or other significantfindings are identified mammographically in either breast. There has been no significant interval change. IMPRESSION: No mammographic evidence of malignancy in either breast. Annual screening mammography is recommended. BI-RADS 1 NEGATIVE The patient will be notified of the results and recommendations. us Tayo Dawn DO IMG MG EXAMS Final Result documented in this encounter Visit Diagnoses Diagnosis Breast screening- Primary Breast screening, unspecified Breast screening Breast screening, unspecified Visit for screening mammogram documented in this encounter Care Teams Oil Developer Relationship Specialty Start Date End Date Tayo Dawn DO 179 [place] [address] PCP - General 03/01/17 Tayo Dawn DO Historical LMR Provider 12/12/16 Tayo Dawn DO 179 [place] [address] Insurance Assigned Provider 06/02/23 documented as of this encounter Additional Source Comments The information contained in this document represents components of the legal health record. It is not the complete legal health record.[facility]
--- OUTSIDE RECORDS SUMMARY | 2025-02-25 10:44 | XMS_ITS | Encounter Summary ---
Author Organization [facility] Address [address] [address] Phone Care Team Providers Care Air Brake Mechanic Name Role Phone Tayo Dawn DO Unavailable Daysi Stringer SOLAR WATER HEATER INSTALLER Unavailable Sun [place] SOLAR WATER HEATER INSTALLER Unavailable Cynthia Paulino MD Unavailable Dianne Harry SOLAR WATER HEATER INSTALLER Unavailable [phone] Tayo Dawn DO Primary Care Provider [phone] Tayo Dawn DO Unavailable Encounter Details Date Type Department Care Team (Late st Contact Info) Description 09/27/2017 Ancillary Orders Virtual Department 30 [place] [address] Tayo Dawn DO 179 [facility] [place] [address] [email or web address] Breast screening Social History Tobacco Use Types Packs/Day Years Used Date Smoking Tobacco: Never Assessed Comments Unknown Sex and Gender Information Value Date Recorded Sex Assigned at Female 10/05/2018 5:50 AM EDT Legal Sex Female 9:50 PM EDT Gender Identity Female 10/05/2018 5:50 AM EDT Sexual Orientation Not on file documented as of this encounter Plan of Treatment Upcoming Encounters Date Type Department Care Team (Late st Contact Info) Description 11/24/2024 Procedure Pass [address] [address] 07/29/2025 7:30 AM EDT Appointment [facility] 30 [place] [address] Meirtiffanie Tayo Kevin, 179 [facility] [place] [address] documented as of this encounter Results * BI MAMMOGRAM SCREENING WITH TOMOSYNTHESIS WITH CAD (BILATERAL) (11/02/2017 7:41 AM EDT) Anatomical Region Laterality Modality Breast Left, Breast Right, Breast Bilateral Bila teral Mammography 11/02/2017 8:14 AM EDT Impressions 11/02/2017 8:16 AM EDT No mammographic evidence of malignancy. BI-RADS CATEGORY: 1 - Negative. DENSITY: There are scattered fibroglandular densities. POS - [id number] Narrative 11/02/2017 8:16 AM EDT Standard digital full-field 2-D C view and two-plane tomographic imaging was performed and compared with multiple prior studies, most recently 09/07/2016, with utilization of computer-aided detection. The breasts are composed of scattered fibroglandular densities. The stromal markings are essentially unchanged in overall appearance and distribution. No dominant spiculated mass, suspicious clustered microcalcifications, or focal zone of pathologic skin thickening or retraction are noted to have arisen in the interim. Procedure Note Eleonora Mariscal MD - 11/02/2017 Standard digital full-field 2-D C view and two-plane tomographic imagingwas performed and compared with multiple prior studies, most cuucswur45/13/2017, with utilization of computer-aided detection. The breasts are composed of scattered fibroglandular densities. Thestromal markings are essentially unchanged in overall appearance anddistribution. No dominant spiculated mass, suspicious clusteredmicrocalcifications, or focal zone of pathologic skin thickening orretraction are noted to have arisen in the interim. IMPRESSION: No mammographic evidence of malignancy. BI-RADS CATEGORY: 1 - Negative. DENSITY: There are scattered fibroglandular densities. POS - [id number] Tayo Dawn DO IMG MG EXAMS Final Result documented in this encounter Visit Diagnoses Diagnosis Breast screening Breast screening, unspecified Breast screening Breast screening, unspecified Visit for screening mammogram documented in this encounter Care Teams Air Brake Mechanic Relationship Specialty Start Date End Date Nereyda Tayo BrownDO 179 [facility] [place] [address] PCP - General 03/01/17 Tayo Dawn DO Historical LMR Provider 12/12/16 Daysi Stringer SOLAR WATER HEATER INSTALLER 21 [place] [address] [email or web address] Historical LMR Provider 12/12/16 2 Sun [place] NP 100 [place] [address] Historical LMR Provider 12/12/16 2 Cynthia Paulino MD [address] [place] [address] Historical LMR Provider 12/12/16 03/05/21 Dianne Harry NP [address] [place] [address] Historical LMR Provider 12/12/16 2 Tayo Dawn DO 179 [place] [address] [email or web address] Insurance Assigned Provider 06/02/23 documented as of this encounter Additional Source Comments The information contained in this document represents components of the legal health record. It is not the complete legal health record.[facility]
--- OUTSIDE RECORDS SUMMARY | 2025-02-25 10:44 | XMS_ITS | Encounter Summary ---
Author Organization [facility] Address [address] [facility] [address] [place] [address] Phone Care Team Providers Care Senior Mainframe Developer Name Role Phone Tayo Dawn DO Unavailable Daysi Stringer LEAD BUSINESS ANALYST Unavailable [phone] Sun [place] LEAD BUSINESS ANALYST Unavailable [phone] Cynthia Paulino MD Unavailable Dainne Harry LEAD BUSINESS ANALYST Unavailable [phone] Tayo Dawn DO Primary Care Provider [phone] Tayo Dawn DO Unavailable Encounter Details Date Type Department Care Team (Late st Contact Info) Description 10/29/2019 Procedure Pass [address] [address] Social History Tobacco Use Types Packs/Day Years [...] st Contact Info) Description 11/24/2024 Procedure Pass [address] [address] 07/29/2025 7:30 AM EDT Appointment [facility] 30 [place] [address] Tayo Dawn DO 179 [facility] [place] [address] documented as of this encounter Visit Diagnoses Not on filedocumented in this encounter Care Teams Senior Mainframe Developer Relationship Specialty Start Date End Date Tayo Dawn DO 179 [place] [address] PCP - General 03/01/17 Tayo Dawn DO Historical LMR Provider 12/12/16 Daysi Stringer, LEAD BUSINESS ANALYST 21 [place] [address] [email or web address] Historical LMR Provider 12/12/16 2 Sun [place] NP [address] [place] [address] Historical LMR Provider 12/12/16 2 Cynthia Paulino MD [address] [place] [address] Historical LMR Provider 12/12/16 03/05/21 Dianne Harry NP [address] [place] [address] Historical LMR Provider 12/12/16 2 Tayo Dawn DO 179 [place] [address] [email or web address] Insurance Assigned Provider 06/02/23 documented as of this encounter Additional Source Comments The information contained in this document represents components of the legal health record. It is not the complete legal health record.[facility]
--- OUTSIDE RECORDS SUMMARY | 2025-02-25 10:44 | XMS_ITS | Continuity of Care Document ---
Author Organization [facility] Address [address] [facility] [place] [address] [place] [address] Assessment No assessment recorded. Plan of Treatment Reminders Order Date Submit Date Provider Last Modified By Organization Details Last Modified Time Details Appointments ANNUAL EXAM 2024 09:00A M ANTONIO AMADOR Not available Not available Not available MEDICARE ANNUAL WELLNESS 2026 09:00A M ANTONIO AMADOR Not available Not available Not available Lab CMP, serum or plasma 2024 025 [facility], [address] [place] [address], [address], 02/25/2025 09:45:23 CBC w/ auto diff 2024 025 [facility], [address] [place] [address], [address], 02/25/2025 09:45:23 lipid panel, blood 2024 025 [facility], [address] [place] [address], [address], 02/25/2025 09:45:23 hemoglobi n A1c, QN, blood 2024 025 [facility], [address] [place] [address], [address], 02/25/2025 09:45:23 Referral physical therapist [facility]24 [facility]25 [facility], [address] [place], [address], 02/25/2025 10:04:10 Procedures None recorded. Surgeries None recorded. Imaging None recorded. Medication Orders None recorded. Patient TargetsNo targets recorded. Patient InstructionsNo instructions recorded. 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 2 16:23:13 Bunaliya 124036589 Active 2021 ANTONIO AMADOR [address] [place] [address], [address], [facility] 2 16:24:33 Edema of lower extremity 561460686 Active 2023 Tayo Dawn DO [address] [place] [address], [address], [facility] 4 16:22:04 Hypertens louis disorder 85396002 Active 2023 Tayo Dawn DO [address] [place] [address], [phone], [facility] 4 15:15:45 Pain of knee region 8878489289 Active 2024 ANTONIO AMADOR [address] [place] [address], [phone], [facility] 5 09:26:08 Problem Notes None recorded. Procedures Surgical History Date Name Laterality Status Provider Name and Address Organization Details Recorded Time 5 Colonoscopy completed Gaby Jalloh [facility] 04/01/2024 13:27:07 8 Most Recent Mammogram completed [facility] 10/14/2018 14:16:56 1 Date of Last Pap Smear completed [facility] 12/30/2018 08:07:53 Imaging Results None recorded. Procedure Notes None recorded. Medical Equipment None Reported. Allergies Allergen ID Allergen Name Allergen Category Reaction Reaction Severity Criticality Documentation Date Start Date Code Code System Note Provider Name and Address Organization Details Recorded Time 8172 triamtere ne medicatio n itching mild low 09/11/2023 41190 RxNorm Tayo Dawn, DO 179 [place], [address], [facility] 4 15:14:13 Medications Name Sig Start Date [...] Available Not Available Vitals Date Recorded Body height Body mass index (BMI) Body weight Heart rate Oxygen saturation Systolic And Diastolic Provider Name and Address Organization Details Last Updated DateTime 5 157.48 cm 31.8 kg/m2 02398.0 7 g 91 /min 98 % 110/68 mm[Hg] Annettamark Contrerasmond [facility] 5 09:02:35 Social History Question Answer Notes LastModified by Organizat ion Details LastModified Time Tobacco Smoking Status Former Smoker Quit 1994 Yudith Kumar [facility] 01/03/2021 08:58:53 What Was The Date Of Your Most Recent Tobacco Screening? 02/18/2024 [email or web address] Information not available 02/18/2024 Sex: Unknown Functional Status Question Answer Note LastModified by Organization D etails LastModified Time Do you or have you ever used any other forms of tobacco or nicotine? No [email or web address] Information not available 02/09/2023 Mental Status None [...] mcg/0.3 mL dose 1 completed Lori Gencarelle [facility] 02/09/2023 08:53:14 COVID-19, mRNA, LNP-S, PF, 30 mcg/0.3 mL dose 1 completed Lori Gencarelle [facility] 02/09/2023 08:53:14 influenza, unspecified formulation 2 completed Lori Gencarelle [facility] 02/09/2023 08:53:14 TST-PPD intradermal 0 completed Lori Gencarelle [facility] 02/09/2023 08:53:14 Tdap 9 completed Pamela zheng, [facility] 01/02/2020 08:55:55 Tdap 9 completed Pamela zheng [facility] 01/02/2020 08:55:55 Influenza, split virus, quadrivalent, preservative 0 completed Lori Gencarelle null, [facility] 02/09/2023 08:53:14 zoster, unspecified formulation 0 completed Lori Gencarelle norm, [facility] 02/09/2023 08:53:14 zoster, unspecified formulation 1 completed Lori Gencarelle [facility] 02/09/2023 08:53:14 Past Encounters Encounter ID Performer Location Encounter Start Date Encounter Closed Date Diagnosis/Indication Diagnosis SNOMED-CT Code Diagnosis ICD10 Code Diagnosis IMO Codes Diagnosis Note [id number] Tayo Dawn [facility] [address] [facility] [address] 02/25/2025 08:55:26 02/25/2025 09:45:38 Pain of knee region 2751906339 M25.562 10328074 recommende d PT General ex amination of patient 278295869 Z00.00 664914 BP is excellent Health Concerns Section Related Observation LastModified by Organization Detai ls LastModified Time None Recorded Concern Status LastModified by Organization Details LastModified Time None Recorded Payers Encounter Date Sequence Insurance Name Policy Number Policy Booth Covered Member ID Booth Member ID Guarantor Name 02/25/2025 1 [place] [facility] (HMO) [id number] Senait Cueto [facility] [id number] Senait Toussaint 02/25/2025 2 [place] Senait [facility] [id number] Senait Toussaint Notes Date Note Type Note Provider Name and Address Organization Details Recorded Time 5 text/html Annual WellnessReported by PatientSocial/Behaviora l [...] PT to which patient agreed ANTONIO AMADOR [address] [place] [address], [phone], [facility] Lashawn [facility] 02/25/2025 09:43:43 OBGyn Episode No OBEpisode recorded.
--- OUTSIDE RECORDS SUMMARY | 2025-02-25 10:44 | XMS_ITS | Encounter Summary ---
Author Organization [facility] Address [address] [place] [address] [place] [address] Phone Care Team Providers Care Pot Press Operator Name Role Phone Tayo Dawn DO Unavailable Bigda, Tayo A DO Primary Care Provider [phone] Bigda, Tayo Brown DO Unavailable Encounter Details Date Type Department Care Team (Late st Contact Info) Description 10/11/2021 Procedure Pass [address] [address] Social History Tobacco Use Types Packs/Day Years [...] st Contact Info) Description 11/24/2024 Procedure Pass [address] [address] 07/29/2025 7:30 AM EDT Appointment [address] [address] Tayo Dawn KevinDO 179 [facility] [place] [address] [email or web address] documented as of this encounter Visit Diagnoses Not on filedocumented in this encounter Care Teams Pot Press Operator Relationship Specialty Start Date End Date MeirTayo moreno 179 [place] [address] PCP - General 03/01/17 MeirtiffanieTayo KevinDO [email or web address] Historical LMR Provider 12/12/16 MeirTayo morenoDO 179 [place] [address] Insurance Assigned Provider 06/02/23 documented as of this encounter Additional Source Comments The information contained in this document represents components of the legal health record. It is not the complete legal health record.[facility]
--- OUTSIDE RECORDS SUMMARY | 2025-02-25 10:44 | XMS_ITS | Clinical Summary ---
Author Organization [facility] Address [address] [facility] [address] [place] [address] Phone Care Team Providers Care Trap Setter Name Role Phone Tayo Dawn DO Unavailable Tayo Dawn DO Primary Care Provider [phone] Allergies No known active allergies Medications MVI, adult formula containing vit K, (MULTIPLE VITAMIN) 3,300 unit- 150 mcg/10 mL injection Inject into the vein. Active Active Problems Problem Noted Date Diagnosed Date Acquired hallux valgus of right foot 03/03/2022 Immunizations Immunization Administration Dates Next Due Tdap 01/21/2019,01/11/2009 Family History Medical History Relation Comments Diabetes mellitus Father Gallbladder disease Father Hypertension Father Stroke Father sepsis Father Breast cancer Mother Cancer Mother Diabetes Unspecified Hypertension Unspecified Stroke Unspecified Relation Status Comments Father Mother Unspecified Social History Tobacco Use Types Packs/Day Years Used Date Smoking Tobacco: Former Smokeless Tobacco: Never Tobacco Cessation:Counseling Given: Not Answered Alcohol Use Standard Drinks/Week Comments Yes 1 [...] Not on file N ot on file Last Filed Vital Signs Vital Sign Reading Time Taken Comments Blood Pressure 114/74 06/22/2020 8:01 AM EDT Pulse 72 10/05/2018 9:01 AM EDT Temperature 36.6 C (97.9 F) 10/05/2018 9:01 AM EDT Respiratory Rate 16 10/05/2018 9:01 AM EDT Oxygen Saturation 100% 10/05/2018 5:48 AM EDT Inhaled Oxygen Concentration - - Weight 83 kg (183 lb) 03/03/2022 9:49 AM EST Height 160 cm (5' 3 ) 03/03/2022 9:49 AM EST Body Mass Index 32.42 03/03/2022 9:49 AM EST Plan of Treatment Upcoming Encounters Date Type Department Care Team (Late st Contact Info) Description 11/24/2024 Procedure Pass [address] [address] 07/29/2025 7:30 AM EDT Appointment [address] [address] Tayo Dawn, [address] [facility] [place] [address] Health Maintenance Due Date Last Done Comments DEPRESSION SCREENING 1970 SMOKING Hx and SMOKELESS TOBACCO SCREENING 09/13/1971 HEPATITIS C SCREENING 1976 COLOGUARD 09/13/2003 FIT TEST 09/13/2003 FOBT 09/13/2003 SIGMOIDOSCOPY 09/13/2003 VIRTUAL COLONOSCOPY 09/13/2003 PNEUMOCOCCAL VACCINES (50+ years) (1 of 1 - PCV) 2008 ZOSTER VACCINES (1 of 2) 2008 PAP SMEAR 11/02/2021 11/02/2016, 10/25/2016 SCREENING FOR DIABETES 11/09/2021 11/09/2018 OSTEOPOROSIS SCREENING INITIAL (ONE-TIME) 09/13/2023 INFLUENZA VACCINE (#1) 2024 12/04/2019 COVID-19 VACCINE ( season) 2024 05/08/2020, 04/17/2020 MAMMOGRAM 07/24/2026 07/24/2024, 03/30, 12/02/2021, Additional history exists COLONOSCOPY 04/01/2027 04/01/2024 COLORECTAL CANCER SCREENING 04/01/2027 LIPID PANEL 07/02/2028 07/03/2023, 01/26, 02/07/2022, Additional history exists Adult Td,Tdap Booster 01/21/2029 01/21/2019, 009 RSV VACCINE (1 - 1-dose 75+ series) 2033 HEPATITIS A VACCINES Aged Out No long er eligible based on patient's age to complete this topic HIB VACCINES Aged Out No longer eligi ble based on patient's age to complete this topic MENINGOCOCCAL VACCINES (ACWY) Aged Out No longer eligible based on patient's age to complete this topic MENINGOCOCCAL VACCINES (B) Aged Out N o longer eligible based on patient's age to complete this topic Medical Devices Not on file Procedures Procedure Name Priority Date/Time Associated Diagnosis Comments BI MAMMOGRAM SCREENING WITH TOMOSYNTHESIS WITH CAD (BILATERAL) Routine 07/24/2024 7:53 AM EDT Breast screening COLONOSCOPY FOR RESULT ENTRY ONLY Routine 04/01/2024 PAP SMEAR FOR RESULT ENTRY ONLY Routine 10/25/2016 from Last 3 Months or Most Recently Relevant to Health Maintenance Results * BI MAMMOGRAM SCREENING WITH TOMOSYNTHESIS [...] of the results and recommendations. us Tayo Brown Bigda DO IMG MG EXAMS Final Result * COLONOSCOPY FOR RESULT ENTRY ONLY (04/01/2024) Colonoscopy External Historical Provider HEALTH MAINTENANCE Final Result * PAP SMEAR FOR RESULT ENTRY ONLY (10/25/2016) Pap smear NIL, HPV Negative (-16/-18) Historical Provider HEALTH MAINTENANCE Final Result from Last 3 Months or Most Recently Relevant to Health Maintenance [place] [address] [place] [id number] INSURANCE Care Teams Trap Setter Relationship Specialty Start Date End Date Tayo Dawn DO [address] [place] [address] PCP - General 03/01/17 Tayo Dawn DO Historical LMR Provider 12/12/16 Additional Source Comments The information contained in this document represents components of the legal health record. It is not the complete legal health record.[facility]
--- OUTSIDE RECORDS SUMMARY | 2025-02-25 10:44 | XMS_ITS | Encounter Summary ---
Author Organization [facility] Address [address] [facility] [address] [place] [address] Phone Care Team Providers Care Crystal Evaluator Name Role Phone Tayo Dawn DO Unavailable Daysi Stringer TRAY PACKER Unavailable [phone] Sun Boston TRAY PACKER Unavailable [phone] Cynthia Paulino MD Unavailable Dianne Harry TRAY PACKER Unavailable [phone] Tayo Dawn DO Primary Care Provider [phone] Tayo Dawn DO Unavailable Reason for Referral * MRI/CAT Scan - Closed Specialty Diagnoses / Procedures Referred By Angela rojas Referred To Contact Radiology Diagnoses Abnormal findings on diagnostic imaging of other specified body structures Procedures CT Chest Kim Griffin PA-C Phone: tel: fax: [email or web address] Referral ID Status Reason Start Date Expiration Date Visits Re quested Visits Authorized [id number] Closed 10/25/2018 10/25/2019 1 1 Encounter Details Date Type Department Care Team (Latest Contact Info) Description 10/25/2018 Transcribe Orders [facility] Department [address] [place] [address] Kim Griffin PA-C [address] [place] [address] [email or web address] Abnormal findings on diagnostic imaging of other [...] st Contact Info) Description 11/24/2024 Procedure Pass [address] [address] 07/29/2025 7:30 AM EDT Appointment [address] [address] Tayo Dawn, DO [address] [facility] [place] [address] [email or web address] documented as of this encounter Results * CT CHEST WITH CONTRAST (11/13/2018 8:00 AM EDT) Anatomical Region Laterality Modality Chest Computed Tomogra phy 11/13/2018 7:57 AM EDT Impressions 11/13/2018 8:16 AM EDT 1. The chest radiograph findings corresponds to a benign appearing 1 cm right upper lobe calcified granuloma. There are additional bilateral subcentimeter benign calcified granulomas. 2. Mild thyromegaly. 3. Additional findings as above. N.B.: Calcification in the coronary arteries does not in itself have a high positive predictive value for near term cardiac events; however, in the appropriate clinical setting it may be an indication for further evaluation or cardiology consultation depending on the patient?s cardiac risk factors. TOTAL CTDIvol: 5.1 mGy POS - [id number] Narrative 11/13/2018 8:16 AM EDT COMPARISON: Chest radiograph 10/22/2018. No prior CT TECHNIQUE: CT chest with IV contrast. Multiplanar reformatted images generated. Automated exposure control utilized. CT CHEST FINDINGS: Cardiovascular: Heart is normal in size. No pericardial effusion. There is ectasia the descending aorta measuring up to 3.9 cm. No aneurysm. Descending aortic tortuosity. Main pulmonary artery outflow tract is normal in size. No findings suspicious for embolism. Mediastinum: Esophagus is normal. Minimal residual non-masslike thymic tissue in the anterior mediastinum. Mildly enlarged right hilar lymph node measuring 1.1 cm. No enlarged mediastinal lymph nodes. Upper Abdomen: Splenic flexure diverticulosis. Chest wall/Thoracic inlet: No enlarged supraclavicular or axillary lymph nodes. Incidental benign bilateral breast calcifications. Diffuse thyroid gland enlargement. No nodules identified. Musculoskeletal: Diffuse thoracic spine endplate spurring with mild multilevel disc space narrowing and moderate C6-7 disc space narrowing. No compression fractures or destructive bone lesions. Lungs: No airway masses or bronchiectasis. No masses, consolidation or pleural effusions. 1 cm calcified granuloma in the right upper lobe adjacent to the minor fissure account for the radiographic findings. There are additional multiple bilateral subcentimeter calcified granulomas. No suspicious nodules. There is minimal focal sub-pleural groundglass opacity and pleural thickening in the anterior left upper lobe which is likely postinflammatory. Procedure Note Ileana Roy MD - 11/13/2018 COMPARISON: Chest radiograph 10/22/2018. No prior CT TECHNIQUE: CT chest with IV contrast. Multiplanar reformatted imagesgenerated. Automated exposure control utilized. CT CHEST FINDINGS: Cardiovascular: Heart is normal in size. No pericardial effusion. Thereis ectasia the descending aorta measuring up to 3.9 cm. No aneurysm.Descending aortic tortuosity. Main pulmonary artery outflow tract isnormal in size. No findings suspicious for embolism. Mediastinum: Esophagus is normal. Minimal residual non-masslike thymictissue in the anterior mediastinum. Mildly enlarged right hilar lymphnode measuring 1.1 cm. No enlarged mediastinal lymph nodes. Upper Abdomen: Splenic flexure diverticulosis. Chest wall/Thoracic inlet: No enlarged supraclavicular or axillary lymphnodes. Incidental benign bilateral breast calcifications. Diffusethyroid gland enlargement. No nodules identified. Musculoskeletal: Diffuse thoracic spine endplate spurring with mildmultilevel disc space narrowing and moderate C6-7 disc space narrowing.No compression fractures or destructive bone lesions. Lungs: No airway masses or bronchiectasis. No masses, consolidation orpleural effusions. 1 cm calcified granuloma in the right upper lobeadjacent to the minor fissure account for the radiographic findings.There are additional multiple bilateral subcentimeter calcifiedgranulomas. No suspicious nodules. There is minimal focal sub-pleuralgroundglass opacity and pleural thickening in the anterior left upper lobewhich is likely postinflammatory. IMPRESSION: 1. The chest radiograph findings corresponds to a benign appearing 1 cmright upper lobe calcified granuloma. There are additional bilateralsubcentimeter benign calcified granulomas. 2. Mild thyromegaly. 3. Additional findings as above. N.B.: Calcification in the coronary arteries does not in itself have ahigh positive predictive value for near term cardiac events; however, inthe appropriate clinical setting it may be an indication for furtherevaluation or cardiology consultation depending on the patient?s cardiacrisk factors. TOTAL CTDIvol: 5.1 mGy POS - [id number] May Elias WALLER IMG CT CHEST Final Result documented in this encounter Visit Diagnoses Diagnosis Abnormal findings on diagnostic imaging of other specified body structures- Primary Abnormal findings on diagnostic imaging of other specified body structures Visit for screening mammogram documented in this encounter Care Teams Crystal Evaluator Relationship Specialty Start Date End Date Tayo Dawn DO [address] [place] [address] PCP - General 03/01/17 Tayo Dawn DO Historical LMR Provider 12/12/16 Daysi Stringer NP [address] [place] [address] [email or web address] Historical LMR Provider 12/12/16 2 Sun Boston NP [address] [place] [address] Historical LMR Provider 12/12/16 2 Cynthia Paulino MD [address] [address] [email or web address] Historical LMR Provider 12/12/16 03/05/21 Dianne Harry NP [address] [place] [address] Historical LMR Provider 12/12/16 2 Tayo Dawn DO [address] [place] [address] [email or web address] Insurance Assigned Provider 06/02/23 documented as of this encounter Additional Source Comments The information contained in this document represents components of the legal health record. It is not the complete legal health record.[facility]
--- OUTSIDE RECORDS SUMMARY | 2025-02-25 10:44 | XMS_ITS | Encounter Summary ---
Author Organization [facility] Address [address] [address] Phone Care Team Providers Care Atm Manager Name Role Phone Tayo Dawn DO Unavailable Daysi Stringer GREEN END MAN Unavailable Sun Boston GREEN END MAN Unavailable [phone] Cynthia Paulino MD Unavailable Dianne Harry GREEN END MAN Unavailable [phone] Tayo Dawn DO Primary Care Provider [phone] Tayo Dawn DO Unavailable Encounter Details Date Type Department Care Team (Late st Contact Info) Description 09/30/2019 Ancillary Orders Virtual Department [address] [place] [address] Tayo Dawn DO 179 [facility] [place] [address] [email or web address] Breast screening Social History Tobacco Use Types [...] st Contact Info) Description 11/24/2024 Procedure Pass [address] [address] 07/29/2025 7:30 AM EDT Appointment [facility] [address] [place] [address] Tayo Dawn, [address] [facility] [place] [address] [place] [address] documented as of this encounter Results * BI MAMMOGRAM SCREENING WITH TOMOSYNTHESIS WITH CAD (BILATERAL) (11/28/2019 7:37 AM EDT) Anatomical Region Laterality Modality Breast Left, Breast Right, Breast Bilateral Bila teral Mammography 11/28/2019 2:42 PM EDT Impressions 11/28/2019 2:44 PM EDT BILATERAL BREASTS: Negative, no evidence of malignancy. Normal interval follow- up is recommended in 12 months. BI-RADS: BI-RADS CATEGORY: 1 - Negative. DENSITY: There are scattered fibroglandular densities. Narrative 11/28/2019 2:44 PM EDT STUDY: Bilateral screening mammography with tomosynthesis and CAD TECHNIQUE: Bilateral full-field digital screening mammography is obtained and read in conjunction with computer-aided detection. Tomosynthesis as well as 2-D C view imaging were obtained. COMPARISON: Comparison made to multiple prior, most recent November 13, 2018, and most remote June 20, 2013. BREAST COMPOSITION: There are scattered areas of fibroglandular density BILATERAL BREASTS: No significant masses, calcifications or other abnormalities are seen. Procedure Note Kory Ibanez MD - 11/28/2019 STUDY: Bilateral screening mammography with tomosynthesis and CAD TECHNIQUE: Bilateral full-field digital screening mammography is obtainedand read in conjunction with computer-aided detection. Tomosynthesis aswell as 2-D C view imaging were obtained. COMPARISON: Comparison made to multiple prior, most recent October, and most remote June 20, 2013. BREAST COMPOSITION: There are scattered areas of fibroglandulardensity BILATERAL BREASTS: No significant masses, calcifications or otherabnormalities are seen. IMPRESSION: BILATERAL BREASTS: Negative, no evidence of malignancy. Normal intervalfollow-up is recommended in 12 months. BI-RADS: BI-RADS CATEGORY: 1 - Negative. DENSITY: There are scattered fibroglandular densities. Tayo Dawn DO IMG MG EXAMS Final Result documented in this encounter Visit Diagnoses Diagnosis Breast screening Breast screening, unspecified Breast screening Breast screening, unspecified Visit for screening mammogram documented in this encounter Care Teams Atm Manager Relationship Specialty Start Date End Date Tayo Dawn DO [address] [facility] [place] [address] PCP - General 03/01/17 Tayo Dawn DO Historical LMR Provider 12/12/16 Daysi Stringer GREEN END MAN [address] [place] [address] [email or web address] Historical LMR Provider 12/12/16 2 Sun [place] NP 100 [place] [address] Historical LMR Provider 12/12/16 2 Cynthia Paulino MD 22 [facility] [address] [place] [address] Historical LMR Provider 12/12/16 03/05/21 Dianne Harry NP [address] [place] [address] Historical LMR Provider 12/12/16 2 Tayo Dawn DO [address] [place] [address] [email or web address] Insurance Assigned Provider 06/02/23 documented as of this encounter Additional Source Comments The information contained in this document represents components of the legal health record. It is not the complete legal health record.[facility]
--- OUTSIDE RECORDS SUMMARY | 2025-02-25 10:44 | XMS_ITS | Encounter Summary ---
Author Organization [facility] Address [address] [facility] [address] [place] [address] Phone Care Team Providers Care Teacher Name Role Phone Tayo Dawn DO Unavailable Daysi Stringer CLUB STEWARD Unavailable [phone] Sun Boston CLUB STEWARD Unavailable [phone] Cynthia Paulino MD Unavailable Dianne Harry CLUB STEWARD Unavailable [phone] Tayo Dawn DO Primary Care Provider [phone] Tayo Dawn DO Unavailable Reason for Referral * Physical Therapy (Routine) - Closed Specialty Diagnoses / Procedures Referred By Angela rojas Referred To Contact Physical Therapy Diagnoses Pain in thoracic spine Kim Griffin PA-C Phone: tel: fax: [email or web address] [facility] [address] [place] [address] Phone: tel: Referral ID Status Reason Start Date Expiration Date Visits Re quested Visits Authorized [id number] Closed 10/15/2018 02/11/2019 12 12 Encounter Details Date Type Department Care Team (Latest Contact Info) Description 10/15/2018 Transcribe Orders [facility] [address] [place] [address] Kim Griffin PA-C [address] [place] [address] [email or web address] Pain in thoracic spine (Primary Dx) Social History Tobacco Use Types [...] Contact Info) Description 11/24/2024 Procedure Pass [address] [address] 07/29/2025 7:30 AM EDT Appointment [address] [address] Tayo Dawn DO [address] [place] [address] Scheduled Referrals Name Type Priority Associated Diagnoses Order Schedule Ambulatory referral to [facility] Physical Therapy Outpatient Referral Routine Pain in thoracic spine Ordered: 10/15/2018 documented as of this encounter Visit Diagnoses Diagnosis Pain in thoracic spine- Primary Visit for screening mammogram documented in this encounter Care Teams Teacher Relationship Specialty Start Date End Date Tayo Dawn DO [address] [place] [address] PCP - General 03/01/17 Tayo Dawn DO Historical LMR Provider 12/12/16 Daysi Stringer NP [address] [place] [address] [email or web address] Historical LMR Provider 12/12/16 2 Sun Boston NP 100 [place] [address] Historical LMR Provider 12/12/16 2 Cynthia Paulino MD [address] [place] [address] [email or web address] Historical LMR Provider 12/12/16 03/05/21 Dianne Harry NP [address] [place] [address] Historical LMR Provider 12/12/16 2 Tayo Dawn DO [address] [place] [address] [email or web address] Insurance Assigned Provider 06/02/23 documented as of this encounter Additional Source Comments The information contained in this document represents components of the legal health record. It is not the complete legal health record.[facility]
--- OUTSIDE RECORDS SUMMARY | 2025-02-25 10:44 | XMS_ITS | Encounter Summary ---
Author Organization [facility] Address [address] [facility] [address] [place] [address] Phone Care Team Providers Care Product Picker Name Role Phone Tayo Dawn DO Unavailable Bigda, Tayo A DO Primary Care Provider [phone] Bigda, Tayo Brown DO Unavailable Encounter Details Date Type Department Care Team (Late st Contact Info) Description 01/31/2024 Procedure Pass [facility] 30 [place] [address] Social History Tobacco Use Types Packs/Day Years [...] st Contact Info) Description 11/24/2024 Procedure Pass [address] [address] 07/29/2025 7:30 AM EDT Appointment [address] [address] Tayo Dawn DO [address] [place] [address] documented as of this encounter Visit Diagnoses Not on filedocumented in this encounter Care Teams Product Picker Relationship Specialty Start Date End Date Tayo Dawn DO [address] [place] [address] PCP - General 03/01/17 Tayo Dawn DO Historical LMR Provider 12/12/16 Tayo Dawn DO [address] [place] [address] Insurance Assigned Provider 06/02/23 documented as of this encounter Additional Source Comments The information contained in this document represents components of the legal health record. It is not the complete legal health record.[facility]
--- OUTSIDE RECORDS SUMMARY | 2025-02-25 10:44 | XMS_ITS | Encounter Summary ---
Author Organization [facility] Address [address] [address] Phone Care Team Providers Care Microarray Operations Vice President Name Role Phone Tayo Dawn DO Unavailable Daysi Stringer TRANSPORT NURSE Unavailable Sun [place] TRANSPORT NURSE Unavailable [phone] Cynthia Paulino MD Unavailable Dianne Harry TRANSPORT NURSE Unavailable [phone] Tayo Dawn DO Primary Care Provider [phone] Tayo Dawn DO Unavailable Encounter Details Date Type Department Care Team (Late st Contact Info) Description 09/27/2017 Ancillary Orders [facility] Sensitive Scanned Docs - Virtual Department [address] [place] [address] Tayo Dawn DO [address] [place] [address] [email or web address] Social History Tobacco Use Types Packs/Day Years [...] st Contact Info) Description 11/24/2024 Procedure Pass [facility], [address] [address] 07/29/2025 7:30 AM EDT Appointment [address] [address] Tayo Dawn DO [address] [place] [address] documented as of this encounter Visit Diagnoses Not on filedocumented in this encounter Care Teams Microarray Operations Vice President Relationship Specialty Start Date End Date Tayo Dawn DO [address] [place] [address] PCP - General 03/01/17 Tayo Dawn DO Historical LMR Provider 12/12/16 Daysi Stringer, TRANSPORT NURSE [address] [place] [address] [email or web address] Historical LMR Provider 12/12/16 2 Sun Boston NP [address] [place] [address] Historical LMR Provider 12/12/16 2 Cynthia Paulino MD [address] [place] [address] Historical LMR Provider 12/12/16 03/05/21 Dianne Harry NP [address] [place] [address] Historical LMR Provider 12/12/16 2 Tayo Dawn DO [address] [place] [address] [email or web address] Insurance Assigned Provider 06/02/23 documented as of this encounter Additional Source Comments The information contained in this document represents components of the legal health record. It is not the complete legal health record.[facility]
--- OUTSIDE RECORDS SUMMARY | 2025-02-25 10:45 | XMS_ITS | Encounter Summary ---
Author Organization [facility] Address [address] [facility] [address] [place] [address] Phone Care Team Providers Care Solution Strategist Name Role Phone Nereyda Tayo Brown DO Unavailable Daysi Stringer FULL TIME STAFF INTERPRETER Unavailable [phone] [place] FULL TIME STAFF INTERPRETER Unavailable [phone] Cynthia Paulino MD Unavailable Dianne Harry FULL TIME STAFF INTERPRETER Unavailable [phone] Tayo Dawn DO Primary Care Provider [phone] Tayo Dawn DO Unavailable Encounter Details Date Type Department Care Team (Latest Contact Info) Description 11/13/2018 Transcribe Orders Virtual Department [address] [place] [address] Kim Griffin PA-C [address] [place] [address] [email or web address] Nontoxic goiter, unspecified (Primary Dx) Social History Tobacco Use Types [...] st Contact Info) Description 11/24/2024 Procedure Pass [address] [address] 07/29/2025 7:30 AM EDT Appointment [address] [address] Tayo Dawn, [address] [facility] [place] [address] documented as of this encounter Results * US Thyroid Gland (11/22/2018 12:11 PM EDT) Anatomical Region Laterality Modality Neck, Head, Chest Ultrasound 11/22/2018 12:2 1 PM EDT Impressions 11/22/2018 12:24 PM EDT Mild diffuse bilateral thyroid gland enlargement with heterogeneous echogenicity but without dominant thyroid nodules evident. S/S: + GOITER [SIGN/SX] MILD DIFFUSE THYROMEGALY SEEN INCIDENTALLY ON CHEST CT enlarged thyroid gland POS - [id number] Narrative 11/22/2018 12:24 PM EDT COMPARISON: CT chest 11/13/2018 FINDINGS: The right thyroid lobe measures 5.8 x 2.2 x 2.9 cm while the left thyroid lobe measures 5.0 x 2.0 x 2.3 cm. Both thyroid lobes appear heterogeneous in echotexture without discrete individual nodules noted. The isthmus is unremarkable. No significant hyperemia is seen. Procedure Note Brock Landry MD - 11/22/2018 COMPARISON: CT chest 11/13/2018 FINDINGS: The right thyroid lobe measures 5.8 x 2.2 x 2.9 cm while the left thyroidlobe measures 5.0 x 2.0 x 2.3 cm. Both thyroid lobes appear heterogeneousin echotexture without discrete individual nodules noted. The isthmus isunremarkable. No significant hyperemia is seen. IMPRESSION: Mild diffuse bilateral thyroid gland enlargement with heterogeneousechogenicity but without dominant thyroid nodules evident. S/S: + GOITER [SIGN/SX] MILD DIFFUSE THYROMEGALY SEEN INCIDENTALLY ON CHEST CT enlarged thyroidgland POS - [id number] May Elias WALLER IMG US THYROID Final Result documented in this encounter Visit Diagnoses Diagnosis Nontoxic goiter, unspecified- Primary Nontoxic goiter, unspecified Visit for screening mammogram documented in this encounter Care Teams Solution Strategist Relationship Specialty Start Date End Date Tayo Dawn DO [address] [place] [address] PCP - General 03/01/17 Tayo Dawn DO Historical LMR Provider 12/12/16 Daysi Stringer NP [address] [place] [address] [email or web address] Historical LMR Provider 12/12/16 2 Sun [place] NP [address] [place] [address] Historical LMR Provider 12/12/16 2 Cynthia Paulino MD [address] [place] [address] [email or web address] Historical LMR Provider 12/12/16 03/05/21 Dianne Harry NP [address] [place] [address] Historical LMR Provider 12/12/16 2 Tayo Dawn DO [address] [place] [address] [email or web address] Insurance Assigned Provider 06/02/23 documented as of this encounter Additional Source Comments The information contained in this document represents components of the legal health record. It is not the complete legal health record.[facility]
--- OUTSIDE RECORDS SUMMARY | 2025-02-25 10:45 | XMS_ITS | Encounter Summary ---
Author Organization [facility] Address [address] [facility] [address] [place] [address] Phone Care Team Providers Care Paper Roller Name Role Phone Tayo Dawn DO Unavailable Bigda, Tayo A DO Primary Care Provider [phone] Bigda, Tayo Brown DO Unavailable Encounter Details Date Type Department Care Team (Late st Contact Info) Description 02/09/2023 Procedure Pass [facility] [address] [place] [address] Social History Tobacco Use Types Packs/Day Years [...] st Contact Info) Description 11/24/2024 Procedure Pass [address] [address] 07/29/2025 7:30 AM EDT Appointment [address] [address] Tayo aDwn DO [address] [place] [address] documented as of this encounter Visit Diagnoses Not on filedocumented in this encounter Care Teams Paper Roller Relationship Specialty Start Date End Date Tayo Dawn DO [address] [place] [address] [email or web address] PCP - General 03/01/17 Tayo Dawn DO [email or web address] Historical LMR Provider 12/12/16 Tayo Dawn DO [address] [place] [address] [email or web address] Insurance Assigned Provider 06/02/23 documented as of this encounter Additional Source Comments The information contained in this document represents components of the legal health record. It is not the complete legal health record.[facility]
--- OUTSIDE RECORDS SUMMARY | 2025-02-25 10:45 | XMS_ITS | Encounter Summary ---
Author Organization [facility] Address [address] [address] Phone Care Team Providers Care Ear Pull Machine Operator Name Role Phone Tayo Dawn DO Unavailable MeirTayo moreno DO Primary Care Provider [phone] Nereyda, Tayo Brown DO Unavailable Encounter Details Date Type Department Care Team ([facility] st Contact Info) Description 02/09/2023 Transcribe Orders Virtual Department [address] [place] [address] Tayo Dawn DO [address] [facility] [address] [place], [place] [id number] [email or web address] Breast screening (Primary Dx) Social History Tobacco [...] st Contact Info) Description 11/24/2024 Procedure Pass [address] [address] 07/29/2025 7:30 AM EDT Appointment [address] [address] Tayo Dawn DO [address] [facility] [place] [address] documented as of this encounter Results * BI MAMMOGRAM SCREENING WITH TOMOSYNTHESIS WITH CAD (BILATERAL) (04/18/2023 8:06 AM EST) Anatomical Region Laterality Modality Breast Left, Breast Right, Breast Bilateral Bila teral Mammography 04/20/2023 11:5 8 AM EST Impressions 04/20/2023 1:11 PM EST No mammographic signs of malignancy. Annual screening is recommended. BI-RADS CATEGORY: 1 - Negative. DENSITY: There are scattered fibroglandular densities. Narrative 04/20/2023 1:11 PM EST Bilateral mammography is performed in conjunction with computed aided detection. 3-D tomography along with 2-D C view imaging was also performed. Comparison made to previous dated as far back as 09/07/2016 and as recent as 12/02/2021. No suspicious masses, areas of architectural distortion or suspicious microcalcifications. Procedure Note Irving Garcia MD - 04/20/2023 Bilateral mammography is performed in conjunction with computed aideddetection. 3-D tomography along with 2-D C view imaging was alsoperformed. Comparison made to previous dated as far back as 09/07/2016 andas recent as 12/02/2021. No suspicious masses, areas of architectural distortion or suspiciousmicrocalcifications. IMPRESSION: No mammographic signs of malignancy. Annual screening is recommended. BI-RADS CATEGORY: 1 - Negative. DENSITY: There are scattered fibroglandular densities. us Tayo Dawn DO IMG MG EXAMS Final Result documented in this encounter Visit Diagnoses Diagnosis Breast screening- Primary Breast screening, unspecified Breast screening Breast screening, unspecified Visit for screening mammogram documented in this encounter Care Teams Ear Pull Machine Operator Relationship Specialty Start Date End Date Tayo Dawn DO [address] [place] [address] [email or web address] PCP - General 03/01/17 Tayo Dawn DO Historical LMR Provider 12/12/16 Tayo Dawn DO [address] [place] [address] [email or web address] Insurance Assigned Provider 06/02/23 documented as of this encounter Additional Source Comments The information contained in this document represents components of the legal health record. It is not the complete legal health record.[facility]
[2025-02-25 14:20] LABS: MANUAL DIFF FLAG NO
[2025-02-25 14:26] LABS: Hematocrit 40.4 % (37.0-47.0); Hemoglobin 13.3 g/dl (12.0-16.0); Imm Gran Abs Auto 0.01 X10*3/uL (0.00-0.03); Imm Gran Pct Auto 0.2 % (0.0-0.4); Lymphocytes Absolute Auto 2.1 X10*3/uL (1.2-4.9); Mean Corpuscular HGB Conc 32.9 g/dl (31.0-35.0); Mean Corpuscular Hemoglobin 30.7 pg (27.0-33.0); Mean Corpuscular Volume 93.3 fL (80.0-98.0); NRBC Abs Auto 0.000 X10*3/uL (0.0-0.012); NRBC Pct Auto 0.0 /100WBC (0.0-0.2); Platelet Count 195 X10*3/uL (160-400); Red Blood Count 4.33 X10*6/uL (4.20-5.50); White Blood Count 5.6 X10*3/uL (4.8-10.8)
[2025-02-25 14:34] LABS: Alanine Aminotransferase 27 U/L (0-31); Albumin Level 4.4 g/dL (3.5-5.0); Alkaline Phosphatase 65 U/L (39-117); Anion Gap 10 (12-20); Aspartate Amino Transferase 33 U/L (5-31); Blood Urea Nitrogen 15 mg/dL (9-16); Calcium 9.2 mg/dL (8.4-10.2); Carbon Dioxide 29 mmol/L (22-29); Chloride 107 mmol/L (96-108); Cholesterol 248 mg/dL (<200); Estimated Glomerular Filt Rate > 60; HDL Cholesterol 75 mg/dL (>40); Potassium 3.9 mmol/L (3.3-5.1); Sodium 142 mmol/L (135-145); Total Protein 6.7 g/dL (6.5-8.0); Triglycerides 99 mg/dL (<150)
== END 2025-02-25 09:51 | disposition home or self-care (01) ==
LOC: HO.MANLDS 09:50
PROVIDERS: Visit Provider Physician Assistant
DX: Z00.00 Encounter for general adult medical examination without abnormal findings (principal); Z13.1 Encounter for screening for diabetes mellitus; Z13.6 Encounter for screening for cardiovascular disorders
CPT/HCPCS: 36415; 80053; 80061; 83036; 85025